=== PATIENT | female | born 1990 | race Caucasian/White ===

== ENCOUNTER 2019-09-26 10:04 | Emergency (ER) | payer OTHER, SELFPAY ==
--- NOTE | 2019-09-26 10:11 | ERPHSYRPT ---
- History of Present Illness Time Seen by Provider: 09/26/19 10:10 Source: patient Exam Limitations: no limitations Physician History: She is a 29-year-old -0-0-3 currently with an estimated gestational age of 12 weeks 2 days by ultrasound dating 10 weeks on September 10, 2019 presents with a chief complaint of nausea and vomiting. She states that she has had ongoing nausea in addition to vomiting for the past few weeks now. She states her prior pregnancies were complicated with hyperemesis gravidarum. Of note, the patient also reportedly tested positive for influenza A last week and her symptoms at that time included nausea, vomiting in addition to myalgias , chills and fever. She states over the last 48 hours her fever has since resolved in addition to her myalgias and she has been taken Tylenol as needed for her symptoms. She denies any headache, cough, sore throat, current fever, abdominal pain, vaginal bleeding, vaginal discharge, and symptoms consistent with a UTI. The patient also denies back pain. She has not taken anything for her symptoms, specifically for her nausea and vomiting. She was instructed by her [employer], Dr. He, to come to the emergency department for further evaluation and management, to specifically receive IV fluids. Associated Symptoms: nausea, vomiting, No abdominal pain, No shortness of breath , No cough, No chills, No chest pain, No headaches Allergies/Adverse Reactions: sulfamethoxazole [From Bactrim] Allergy (Verified 09/26/19 10:14) trimethoprim [From Bactrim] Allergy (Verified 09/26/19 10:14) Home Medications: Vits W-Ca,Fe,FA(<1Mg) [] 1 tab PO DAILY 09/26/19 [History] Hx Tetanus, Diphtheria Vaccination/Date Given: Yes Hx Influenza Vaccination/Date Given: Yes Hx Pneumococcal Vaccination/Date Given: No - Review of Systems Constitutional: No Fever, No Chills Respiratory: No Cough, No Cyanosis, No Dyspnea Cardiac: No Chest Pain Abdominal/Gastrointestinal: Nausea, Vomiting, No Abdominal Pain, No Diarrhea, No Hematemesis, No Hematochezia Genitourinary Symptoms: , No Dysuria, No Frequency, No Flank Pain, No Vaginal Bleeding, No Vaginal Discharge Musculoskeletal: No Symptoms Skin: No Symptoms Neurological: No Symptoms Psychological: No Symptoms All Other Systems: Reviewed and Negative - Past Medical History Pertinent Past Medical History: Yes Respiratory History: Asthma, Other Other Medical History: RESTLESS LEGS, RSV - Past Surgical History Past Surgical History: No - Social History Smoking Status: Never smoker Exposure to second hand smoke: No Drug Use: none Patient Lives Alone: No - Nursing Vital Signs Nursing Vital Signs: Initial Vital Signs Temperature 97.7 F 09/26/19 10:16 Pulse Rate 84 09/26/19 10:16 Respiratory Rate 19 09/26/19 10:16 Blood Pressure 114/79 09/26/19 10:16 O2 Sat by Pulse Oximetry 97 09/26/19 10:16 Pain Scale Pain Intensity 0 - Physical Exam General Appearance: no apparent distress, alert Eye Exam: PERRL/EOMI, eyes nml inspection Ears, Nose, Throat Exam: normal ENT inspection Neck Exam: normal inspection, non-tender Respiratory Exam: normal breath sounds, lungs clear, airway intact, diminished breath sounds, No chest tenderness, No respiratory distress, No accessory muscle use Cardiovascular Exam: regular rate/rhythm, normal heart sounds, normal peripheral pulses, capillary refill <2 sec, No murmur, No friction rub, No gallop, No edema, No pulse deficit Gastrointestinal/Abdomen Exam: soft, normal bowel sounds, No tenderness, No distention, No mass, No rebound, No hepatomegaly Pelvic Exam: not done, deferred Rectal Exam: deferred Back Exam: normal inspection Extremity Exam: normal inspection Neurologic Exam: alert, oriented x 3, cooperative - Course Nursing assessment & vital signs reviewed: Yes Ordered Tests: Medication Summary Discontinued Medications Generic Name Dose Route Start Last Admin Trade Name Chanceq PRN Reason Stop Dose Admin Diphenhydramine HCl 12.5 mg 09/26/19 10:32 09/26/19 10:42 Benadryl 50 Mg/Ml IV 09/26/19 10:33 12.5 mg STAT ONE Administration Diphenhydramine HCl Confirm 09/26/19 10:40 Benadryl 50 Mg/Ml Administered 09/26/19 10:41 Dose 50 mg .ROUTE .STK-MED ONE Sodium Chloride 1,000 mls @ 999 mls/hr 09/26/19 10:31 09/26/19 11:42 Sodium Chloride 0.9% 1000 Ml IV 09/26/19 11:31 Infused .Q1H1M STA Infusion Sodium Chloride Confirm 09/26/19 10:40 Sodium Chloride 0.9% 1000 Ml Administered 09/26/19 10:41 Dose 1,000 mls @ ud .ROUTE .STK-MED ONE Metoclopramide HCl 10 mg 09/26/19 10:31 09/26/19 10:44 Reglan 10 Mg/2 Ml IV 09/26/19 10:32 10 mg STAT ONE Administration Metoclopramide HCl Confirm 09/26/19 10:40 Reglan 10 Mg/2 Ml Administered 09/26/19 10:41 Dose 10 mg .ROUTE .STK-MED ONE Lab/Rad Data: Laboratory Result Diagrams 09/26/19 10:43 Laboratory Results 09/26/19 Range/Units 10:43 Sodium 139 (137-145) mmol/L Potassium 3.5 (3.5-5.1) mmol/L Chloride 104 (98-107) mmol/L Carbon Dioxide 24 (22-30) mmol/L Anion Gap 14.5 (5-15) MEQ/L BUN 14 (7-17) mg/dL Creatinine 0.59 (0.52-1.04) mg/dL Estimated GFR > 60.0 ML/MIN Glucose 95 (74-106) mg/dL Calcium 9.5 (8.4-10.2) mg/dL - Progress Progress: improved Progress Note: 09/26/19 10:45 Dr. He phone number is 09/26/19 11:47 Patient was reevaluated and found that her nausea completely resolved and she was able to drink a cup of water in addition to eat a couple ice without difficulty. She stated she was feeling better and ready to be discharged. Her labs were reviewed and relatively benign specifically with no electrolyte abnormality. 09/26/19 12:17 I have attempted to contact the patient's [employer]. I managed to get a hold of the director of clinical education who stated her [employer], Dr. Lieberman, will call me back as soon as he is done seeing the patient. In the meantime, I went ahead and discharge the patient and updated with work-up findings and plan for discharge. She stated that she has a follow-up appointment scheduled in the next couple weeks and I suspect this will likely be unchanged however I instructed her to contact her [employer] for further guidance in terms of follow-up and outpatient management. She will be discharged with a prescription for evelyn capsules, Diclegis, in addition to ondansetron. I instructed her to deal with the Diclegis first and take this medication first line and if she cannot afford this medication and felt this medication is not controlling her symptoms she can fill the ondansetron and take this although there was an increased risk for cardiac abnormalities and was made aware this. I have not received a call back yet from her [employer]. Also with the patient's nurse did not obtain heart tones as instructed he was discharged. 09/26/19 16:39 The patient's OB eventually called back and was updated with ED course and disposition. He agreed with management. Discussed with Dr.: Other (Dr. He, hothouse worker) Counseled pt/family regarding: lab results, diagnosis, need for follow-up - Departure Departure Disposition: Home Clinical Impression: Nausea and vomiting during Condition: Good Critical Care Time: No Referrals: DREW HE [NON-STAFF PHY W/O PRIVILEGES] - Instructions: Nausea -- Adult, Vomiting -- Adult, Hyperemesis Gravidarum Prescriptions: Ondansetron [Ondansetron Odt] 4 mg PO Q6H PRN PRN #30 tab.rapdis PRN Reason: Nausea/Vomiting Doxylamine Succinate/Vit B6 [Diclegis Dr 10-10 mg Tablet] 1 each PO BID PRN #60 tablet. Evelyn Root [Evelyn] 250 mg PO Q4-6HPRN PRN #30 capsule PRN Reason: Nausea/Vomiting
[2019-09-26] MEDS ORDERED: Reglan 10 MG/2 ML IV ONE (10:31)
[2019-09-26] MEDS ORDERED: Sodium Chloride 0.9% 1000 ML 1,000 ML IV STA (10:31)
[2019-09-26] MEDS ORDERED: BENADRYL 50 MG/ML IV ONE (10:32)
[2019-09-26] MEDS ORDERED: Reglan 10 MG/2 ML ONE (10:40)
[2019-09-26] MEDS ORDERED: BENADRYL 50 MG/ML ONE (10:40)
[2019-09-26] MEDS ORDERED: Sodium Chloride 0.9% 1000 ML 1,000 ML ONE (10:40)
[2019-09-26 11:00] LABS: ANION GAP 14.5 MEQ/L (5-15); BLOOD UREA NITROGEN 14 mg/dL (7-17); CHLORIDE 104 mmol/L (98-107); Calcium 9.5 mg/dL (8.4-10.2); Carbon Dioxide 24 mmol/L (22-30); Creatinine 1 0.59 mg/dL (0.52-1.04); Glucose 95 mg/dL (74-106); Potassium 3.5 mmol/L (3.5-5.1); SODIUM 139 mmol/L (137-145)
[2019-09-26 12:33] VITALS: BP 104/70; PULSE 64; O2SAT 98
== END 2019-09-26 12:35 | disposition home or self-care (01) ==
LOC: ED 10:04
DX: O21.0 Mild hyperemesis gravidarum (principal); Z3A.12 12 weeks gestation of pregnancy
CPT/HCPCS: 36000; 36415; 80048; 96360; 96374; 96375; 99284; J1200

== ENCOUNTER 2024-02-19 00:04 | Emergency (ER) | payer OTHER ==
--- NOTE | 2024-02-19 00:07 | ERPHSYRPT ---
- History of Present Illness Time Seen by Provider: 02/19/24 00:07 Source: patient, family Exam Limitations: no limitations Physician History: This is an obese 34-year-old white female patient who presents with pain in the lateral aspect of her left lower extremity below the knee. It began yesterday while she was playing "slip and slide" kickball yesterday. Someone slid into the lateral aspect of her left lower leg below the knee. Patient states that it has become increasingly painful. At 1600 on 02/18/2024, patient took 800 mg of ibuprofen. Patient can ambulate but it hurts to do so. There is tenderness and mild swelling present on the lateral aspect of her left lower extremity. Patient has a history of restless leg syndrome and asthma. Occurred: yesterday Quality: constant, aching Severity of Pain-Max: mild Severity of Pain-Current: mild Lower Extremities Pain: leg: left (Below the knee, lateral aspect) Modifying Factors: Improves With: movement Associated Symptoms: other (Can bear weight but hurts to do so) Allergies/Adverse Reactions: sulfamethoxazole [From Bactrim] Allergy (Verified 02/19/24 00:19) trimethoprim [From Bactrim] Allergy (Verified 02/19/24 00:19) Home Medications: No Reportable Medications [No Reported Medications] 02/19/24 [History] Hx Tetanus, Diphtheria Vaccination/Date Given: Yes Hx Influenza Vaccination/Date Given: Yes Hx Pneumococcal Vaccination/Date Given: No Travel Risk - International Travel Have you traveled outside of the country in past 3 weeks: No - Emerging Infectious Disease Are you exhibiting symptoms associated with any current EIDs: No - Review of Systems Constitutional: No Symptoms Eyes: No Symptoms Ears, Nose, & Throat: No Symptoms Respiratory: No Symptoms Cardiac: No Symptoms Abdominal/Gastrointestinal: No Symptoms Genitourinary Symptoms: No Symptoms Musculoskeletal: Injury (Lateral aspect left lower leg below the knee) Skin: No Symptoms Neurological: No Symptoms Psychological: No Symptoms Endocrine: No Symptoms Hematologic/Lymphatic: No Symptoms Immunological/Allergic: No Symptoms All Other Systems: Reviewed and Negative - Past Medical History Pertinent Past Medical History: Yes Neurological History: No Pertinent History ENT History: No Pertinent History Cardiac History: No Pertinent History Respiratory History: Asthma, Other Endocrine Medical History: No Pertinent History Musculoskeletal History: No Pertinent History GI Medical History: No Pertinent History History: No Pertinent History Psycho-Social History: No Pertinent History Female Reproductive Disorders: No Pertinent History Other Medical History: RESTLESS LEGS, RSV - Past Surgical History Past Surgical History: No Neuro Surgical History: No Pertinent History Cardiac: No Pertinent History Respiratory: No Pertinent History Gastrointestinal: No Pertinent History Genitourinary: No Pertinent History Musculoskeletal: No Pertinent History Female Surgical History: No Pertinent History - Female History Hx Last Menstrual Period: 1 YR AGO - Social History Smoking Status: Never smoker Exposure to second hand smoke: No Drug Use: none Patient Lives Alone: No - Nursing Vital Signs Nursing Vital Signs: Initial Vital Signs Temperature 98.9 F 02/19/24 00:10 Pulse Rate 76 02/19/24 00:10 Respiratory Rate 16 02/19/24 00:10 Blood Pressure 121/99 02/19/24 00:10 O2 Sat by Pulse Oximetry 100 02/19/24 00:10 Pain Scale Pain Intensity 4 - Physical Exam General Appearance: no apparent distress, alert, anxiety, obese Eyes, Ears, Nose, Throat Exam: normal ENT inspection, moist mucous membranes Neck Exam: normal inspection, non-tender, supple, full range of motion Cardiovascular/Respiratory Exam: chest non-tender, no respiratory distress Gastrointestinal/Abdominal Exam: non-tender Back Exam: normal inspection, normal range of motion, No CVA tenderness, No vertebral tenderness Hips Exam: bilateral: non-tender, normal inspection, normal range of motion, no evidence of injury Legs Exam: right leg: non-tender, normal inspection, no evidence of injury, left leg: bone tenderness (Lateral aspect below the knee), soft tissue tenderness (Lateral aspect below the knee), bilateral leg: normal range of motion Knees Exam: bilateral knee: non-tender, normal inspection, normal range of motion, no evidence of injury Ankle Exam: bilateral ankle: non-tender, normal inspection, normal range of motion, no evidence of injury Foot Exam: bilateral foot: non-tender, normal inspection, normal range of motion, no evidence of injury Neuro/Tendon Exam: normal sensation, normal motor functions, normal tendon functions, responds to pain, no evidence tendon injury Mental Status Exam: alert, oriented x 3, cooperative Skin Exam: normal color, warm, dry SpO2 Interpretation: normal O2 Delivery: Room Air - Course Nursing assessment & vital signs reviewed: Yes Ordered Tests: Active Orders 24 hr Category Date Time Status LOWER LEG Stat Exams 02/19/24 00:26 Taken - Progress Progress: improved, pain not gone completely Progress Note: 02/19/24 00:51 My medical decision making and the assignment of low complexity to this patient's medical issue today is based on review of the patient's past medical history, review of the patient's medication list, review of patient drug allergy list, history present illness and physical findings on examination. The workup includes x-ray of the left lower extremity below the knee. I interpreted the preliminary report on this patient's x-ray of the left lower extremity/tib-fib. I do not appreciate an acute fracture or dislocation. Counseled pt/family regarding: diagnosis, need for follow-up, rad results Medical Desision Making - Independent Historian Additional History obtained from: Family - Diagnostic Testing Diagnostic test were ordered, analyzed, and reviewed by me: Yes Radiological Interpretation: Interpreted by me - Risk of complications Minimal Risk: Minimal risk of morbidity - Departure Departure Disposition: Home Clinical Impression: Contusion of left lower leg, initial encounter Condition: Stable Critical Care Time: No Referrals: GRISELDA ANGLIN [Primary Care Provider] - Follow up/PCP as directed Additional Instructions: Ice pack to the tender area 3-4 times a day for 72 hours. Alternate Tylenol and ibuprofen every 4 hours while awake. Call your primary care provider on 02/21/2024 to make arrangements for further evaluation and management.
[2024-02-19 00:12] VITALS: RESP 16; TEMP 98.9
[2024-02-19] MEDS ORDERED: PERCOCET TABLET 5/325MG ONE (00:57)
[2024-02-19] MEDS ORDERED: MOTRIN 600 MG ONE (00:57)
[2024-02-19] MEDS: PERCOCET TABLET 5/325MG PO STA ×2 (00:57→01:01)
[2024-02-19] MEDS: MOTRIN 600 MG PO ONE (00:58)
[2024-02-19 01:06] VITALS: BP 117/83; PULSE 72; O2SAT 98
--- NOTE | 2024-02-19 07:33 | XRAY ---
Indication: Pain following blunt injury. Comparison: None 2 view left lower leg demonstrates small plantar heel spur. No other bony, articular, or soft tissue abnormalities.
== END 2024-02-19 01:15 | disposition home or self-care (01) ==
LOC: ED 00:04
DX: S80.12XA Contusion of left lower leg, initial encounter (principal); W50.0XXA Accidental hit or strike by another person, initial encounter; Y93.6A Activity, physical games generally associated with school recess, summer camp and children
CPT/HCPCS: 73590; 99283; A9270-GY